=== PATIENT | female | born 2000 | race Hispanic/Latino ===

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

== ENCOUNTER 2020-10-15 11:34 | Emergency (ER) | payer SELFPAY ==
[2020-10-15] MEDS ORDERED: FAMOTIDINE 20 MG TAB ONE (13:30)
[2020-10-15] MEDS ORDERED: dexAMETHasone 10 MG/ML VIAL ONE (13:30)
[2020-10-15] MEDS ORDERED: DIPHENHYDRAMINE 25 MG TAB/CAP ONE (13:30)
--- NOTE | 2020-10-15 13:53 | EDPHYS ---
Physician Documentation [facility] Name: Shakira Ybarra Age: 20 yrs Sex: Female : 2000 Arrival Date: 10/15/2020 Time: 11:35 Bed DIS5 Private MD: ED Physician Jaxon Lagos HPI: 10/15 12:45 This 20 yrs old Female presents to ER via Ambulatory with complaints of Lips pm1 Swelling. 12:45 The patient's rash thought to be caused by food. The rash is located on the lower lip. pm1 The rash can be described as left sided swelling. Onset: The symptoms/episode began/occurred yesterday. Associated signs and symptoms: Pertinent positives: sore throat, Pertinent negatives: burning sensation, difficulty breathing, fever. Severity of symptoms: in the emergency department the symptoms are worse. Treatment given at home: none. The patient has not experienced similar symptoms in the past. The patient has not recently seen a physician. 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 - Social history:: Smoking status: Patient denies any tobacco usage or history of. ROS: 12:45 Constitutional: Negative for fever, chills, and weight loss, Eyes: Negative for injury, pm1 pain, redness, and discharge. 12:45 Neck: Negative for injury, pain, and swelling, Cardiovascular: Negative for chest pain, palpitations, and edema, Respiratory: Negative for shortness of breath, cough, wheezing, and pleuritic chest pain, Abdomen/GI: Negative for abdominal pain, nausea, vomiting, diarrhea, and constipation, Back: Negative for injury and pain, MS/Extremity: Negative for injury and deformity, Skin: Negative for injury, rash, and discoloration, Neuro: Negative for headache, weakness, numbness, tingling, and seizure. 12:45 ENT: Positive for sore throat, lower lip swelling, Negative for drainage from ear(s), ear pain. Exam: 12:45 Constitutional: This is a well developed, well nourished patient who is awake, alert, pm1 and in no acute distress. Head/Face: Normocephalic, atraumatic. Eyes: Pupils equal round and reactive to light, extra-ocular motions intact. Lids and lashes normal. Conjunctiva and sclera are non-icteric and not injected. Cornea within normal limits. Periorbital areas with no swelling, redness, or edema. 12:45 Neck: Trachea midline, no thyromegaly or masses palpated, and no cervical lymphadenopathy. Supple, full range of motion without nuchal rigidity, or vertebral point tenderness. No Meningismus. 12:45 Back: No spinal tenderness. No costovertebral tenderness. Full range of motion. Skin: Warm, dry with normal turgor. Normal color with no rashes, no lesions, and no evidence of cellulitis. MS/ Extremity: Pulses equal, no cyanosis. Neurovascular intact. Full, normal range of motion. 12:45 ENT: Mouth: Lips: mild left sided swelling, Oral mucosa: normal, pink and intact, moist, Tongue: is normal, drooling, is not appreciated, Posterior pharynx: no acute changes, Voice: no acute changes. 12:45 Cardiovascular: Rate: normal, Rhythm: regular, Pulses: no pulse deficits are appreciated. 12:45 Respiratory: Exam negative for acute changes, respiratory distress, shortness of breath, Breath sounds: are clear throughout. 12:45 Abdomen/GI: Inspection: abdomen appears normal, Palpation: abdomen is soft and non-tender, in all quadrants. 12:45 Neuro: Exam negative for acute changes, Orientation: is normal, Mentation: is normal, Motor: moves all fours, Sensation: is normal, no obvious gross deficits. Vital Signs: 12:13 BP 122 / 80; Pulse 90; Resp 16 S; Temp 97.3(TE); Pulse Ox 98% on R/A; Weight 77.11 kg jd3 (R); Height 5 ft. 5 in. (165.10 cm) (R); Pain 5/10; 13:40 BP 110 / 76; Pulse 86; Resp 16; Pulse Ox 100% on R/A; ca1 12:13 Body Mass Index 28.29 (77.11 kg, 165.10 cm) jd3 MDM: 12:44 Patient medically screened. pm1 13:51 Data reviewed: vital signs. Data interpreted: Pulse oximetry: on room air is 100 %. pm1 Interpretation: normal. Counseling: I had a detailed discussion with the patient and/or guardian regarding: the historical points, exam findings, and any diagnostic results supporting the discharge/admit diagnosis, the need for outpatient follow up, an allergy/educational specialist, a family practitioner, to return to the emergency department if symptoms worsen or persist or if there are any questions or concerns that arise at home. Administered Medications: 13:13 Drug: Pepcid (famotidine) 20 mg Route: PO; ca1 13:40 Follow up: Response: No adverse reaction; Marked relief of symptoms ca1 13:14 Drug: Benadryl (diphenhydrAMINE) 25 mg Route: PO; ca1 13:40 Follow up: Response: No adverse reaction; Marked relief of symptoms ca1 13:16 Drug: Decadron (dexamethasone) 10 mg Route: IM; Site: left gluteus; ca1 13:41 Follow up: Response: No adverse reaction; Marked relief of symptoms ca1 Disposition: 15:59 Co-signature as Attending Physician, Jaxon Lagos MD. rn Disposition: 10/15/20 13:52 Discharged to Home. Impression: Abrasion of lip and oral cavity, Allergy to seafood. - Condition is Stable. - Discharge Instructions: Food Allergy, Seafood Allergy. - Prescriptions for Benadryl 25 mg Oral Capsule - take 1 capsule by ORAL route every 6 hours As needed; 30 tablet. Pepcid 20 mg Oral Tablet - take 1 tablet by ORAL route every 12 hours for 10 days; 20 tablet. Prednisone 20 mg Oral Tablet - take 3 tablet by ORAL route once daily for 5 days; 15 tablet. Augmentin 875- 125 mg Oral Tablet - take 1 tablet by ORAL route every 12 hours for 10 days; 20 tablet. - Medication Reconciliation Form, Thank You Letter, Antibiotic Education, Prescription Opioid Use, Work release form form. - Follow up: Emergency Department; When: As needed; Reason: Worsening of condition. Follow up: Private Physician; When: 2 - 3 days; Reason: Recheck today's complaints, Continuance of care, Re-evaluation by your physician. - Problem is new. - Symptoms have improved. Signatures: Jaxon Lagos MD MD rn Marinas, Patrick, NP [employer] pm1 Joshua Hines RN RN jd3 Lauren Tucker RN RN ca1 Corrections: (The following items were deleted from the chart) 14:05 13:52 10/15/2020 13:52 Discharged to Home. Impression: Abrasion of lip and oral cavity; ca1 Allergy to seafood. Condition is Stable. Forms are Work release form, Medication Reconciliation Form, Thank You Letter, Antibiotic Education, Prescription Opioid Use. Follow up: Emergency Department; When: As needed; Reason: Worsening of condition. Follow up: Private Physician; When: 2 - 3 days; Reason: Recheck today's complaints, Continuance of care, Re-evaluation by your physician. Problem is new. Symptoms have improved. pm1
--- NOTE | 2020-10-15 13:53 | ER ---
Nurse's Notes [facility] Name: Shakira Ybarra Age: 20 yrs Sex: Female : 2000 Arrival Date: 10/15/2020 Time: 11:35 Bed DIS5 Private MD: Diagnosis: Abrasion of lip and oral cavity;Allergy to seafood Presentation: 10/15 12:11 Chief complaint: Patient states: "i have a swollen lip that started yesterday. I jd3 thought it was because of my braces with a cut, but it got a lot worse this morning.". Coronavirus screen: At this time, the client does not indicate any symptoms associated with coronavirus-19. Ebola Screen: Patient negative for fever greater than or equal to 101.5 degrees Fahrenheit, and additional compatible Ebola Virus Disease symptoms. Initial Sepsis Screen: Does the patient meet any 2 criteria? No. Patient's initial sepsis screen is negative. Does the patient have a suspected source of infection? No. Patient's initial sepsis screen is negative. Risk Assessment: Do you want to hurt yourself or someone else? Patient reports no desire to harm self or others. Onset of symptoms was October 14, 2020. 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 - Social history:: Smoking status: Patient denies any tobacco usage or history of. Screenin:45 Abuse screen: Denies threats or abuse. Denies injuries from another. Nutritional ca1 screening: No deficits noted. Tuberculosis screening: No symptoms or risk factors identified. Fall Risk None identified. Assessment: 12:45 General: Appears in no apparent distress. comfortable, Behavior is calm, cooperative, ca1 appropriate for age. Pain: Complains of pain in lower lip. Neuro: Level of Consciousness is awake, alert, obeys commands, Oriented to person, place, time, situation. EENT: Oral mucosa is moist. has white patch/ lesion noted on inner L lower lip. Reports started as a cut 3 days UNDER BASTER. Pt wears braces. Derm: Skin is intact, is healthy with good turgor, Skin is pink, warm \\T\\ dry. Musculoskeletal: Circulation, motion, and sensation intact. Capillary refill < 3 seconds. 13:40 Reassessment: Patient appears in no apparent distress at this time. Patient is alert, ca1 oriented x 3, equal unlabored respirations, skin warm/dry/pink. Vital Signs: 12:13 BP 122 / 80; Pulse 90; Resp 16 S; Temp 97.3(TE); Pulse Ox 98% on R/A; Weight 77.11 kg jd3 (R); Height 5 ft. 5 in. (165.10 cm) (R); Pain 5/10; 13:40 BP 110 / 76; Pulse 86; Resp 16; Pulse Ox 100% on R/A; ca1 12:13 Body Mass Index 28.29 (77.11 kg, 165.10 cm) jd3 ED Course: 11:35 Patient arrived in ED. am2 12:12 Triage completed. jd3 12:14 Arm band placed on. jd3 12:37 Piter Draper NP is PHCP. pm1 12:37 Jaxon Lagos MD is Attending Physician. pm1 12:44 Lauren Tucker, NICHOLE is Primary Nurse. ca1 12:45 Patient has correct armband on for positive identification. Bed in low position. Call ca1 light in reach. 12:47 No provider procedures requiring assistance completed. Patient did not have IV access ca1 during this emergency room visit. Administered Medications: 13:13 Drug: Pepcid (famotidine) 20 mg Route: PO; ca1 13:40 Follow up: Response: No adverse reaction; Marked relief of symptoms ca1 13:14 Drug: Benadryl (diphenhydrAMINE) 25 mg Route: PO; ca1 13:40 Follow up: Response: No adverse reaction; Marked relief of symptoms ca1 13:16 Drug: Decadron (dexamethasone) 10 mg Route: IM; Site: left gluteus; ca1 13:41 Follow up: Response: No adverse reaction; Marked relief of symptoms ca1 Outcome: 13:52 Discharge ordered by . pm1 14:05 Discharged to home ambulatory, with friend. ca1 14:05 Condition: stable 14:05 Discharge instructions given to patient, Instructed on discharge instructions, follow up and referral plans. no drinking with medication, no driving heavy equipment, medication usage, Demonstrated understanding of instructions, follow-up care, medications, Prescriptions given X 4. 14:05 Patient left the ED. ca1 Signatures: Piter Draper NP [employer] SEWER pm1 Justa Lira am2 Joshua Hines RN RN jd3 Lauren Tucker RN RN ca1
[2020-10-15 14:13] VITALS: O2SAT 100
[2020-10-15 14:19] VITALS: TEMP 97.7
[2020-10-15 14:21] VITALS: BP 121/79
== END 2020-10-15 14:05 | disposition home or self-care (01) ==
LOC: ER 11:34
DX: S00.511A Abrasion of lip, initial encounter (principal); S00.512A Abrasion of oral cavity, initial encounter; Z91.013 Allergy to seafood
CPT/HCPCS: 96372; 99283; J1100

== ENCOUNTER 2023-01-15 18:22 | Emergency (ER) | payer SELFPAY ==
[2023-01-15] MEDS ORDERED: ACETAMINOPHEN 500 MG TAB ONE (19:58)
[2023-01-15] MEDS ORDERED: ONDANSETRON 4 MG (ODT) TAB ONE (19:58)
--- NOTE | 2023-01-15 21:48 | ER ---
Nurse's Notes [facility] Name: Shakira Ybarra Age: 22 yrs Sex: Female : 2000 Arrival Date: 01/15/2023 Time: 18:22 Bed 12 Private MD: Diagnosis: Influenza due to unidentified influenza virus with other respiratory manifestations Presentation: 01/15 18:51 Chief complaint: Patient states: "Flu like symptoms: headaches, body aches, sore throat nj1 yesterday". Onset sometime this week. 18:51 Method Of Arrival: Ambulatory [facility] 18:51 Coronavirus screen: Vaccine status: Patient reports being unvaccinated. Ebola Screen: wa1 Patient denies travel to an Ebola-affected area in the 21 days before illness onset. Initial Sepsis Screen: Does the patient meet any 2 criteria? HR > 90 bpm. No. Patient's initial sepsis screen is negative. Does the patient have a suspected source of infection? No. Patient's initial sepsis screen is negative. Risk Assessment: Do you want to hurt yourself or someone else? Patient reports no desire to harm self or others. Onset of symptoms was January 2023. 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 [facility] Historical: - Allergies: 19:18 No Known Allergies; nj1 - PMHx: 19:18 None; nj1 - Immunization history:: Client reports having NOT received the Covid vaccine. - Social history:: Smoking status: Patient denies any tobacco usage or history of. Screenin:00 [facility] ED Fall Risk Assessment (Adult) Score/Fall Risk Level 0 - 2 = Low Risk nj1 Oriented to surroundings, Maintained a safe environment, Hourly rounding (assess needs \\T\\ fall precautionary measures) done. Abuse screen: Denies threats or abuse. Denies injuries from another. Nutritional screening: No deficits noted. Tuberculosis screening: No symptoms or risk factors identified. Assessment: 19:00 Reassessment:. General: Appears in no apparent distress. comfortable, Behavior is calm, nj1 cooperative, appropriate for age. Pain: Complains of pain in Generalized, sore throat Pain currently is 8 out of 10 on a pain scale. Neuro: Level of Consciousness is awake, alert, obeys commands, Oriented to person, place, time, situation. 19:00 Cardiovascular: Patient's skin is warm and dry. Respiratory: Airway is patent nj1 Respiratory effort is even, unlabored. 20:00 Reassessment: Patient appears in no apparent distress at this time. Patient and/or nj1 family updated on plan of care and expected duration. Pain level reassessed. Patient is alert, oriented x 3, equal unlabored respirations, skin warm/dry/pink. 20:55 Reassessment: Patient appears in no apparent distress at this time. Patient and/or nj1 family updated on plan of care and expected duration. Pain level reassessed. Patient is alert, oriented x 3, equal unlabored respirations, skin warm/dry/pink. Given a gatorade for ordered PO challenge. 22:00 Reassessment: Patient appears in no apparent distress at this time. Patient states kl feeling better. Patient states symptoms have improved. Vital Signs: 18:51 BP 124 / 83; Pulse 100; Resp 18; Temp 99.1(O); Pulse Ox 99% on R/A; Weight 83.91 kg; nj1 Height 5 ft. 5 in. ; 20:55 BP 110 / 81; Pulse 105; Resp 17; Temp 98.5(O); Pulse Ox 98% ; Pain 3/10; nj1 22:01 BP 102 / 64; Pulse 92; Resp 16; Temp 97(TE); Pulse Ox 98% on R/A; kl 18:51 Body Mass Index 30.79 (83.91 kg, 165.1 cm) nj1 20:55 Pain Scale: Adult [facility] ED Course: 18:27 Patient arrived in ED. im 18:29 Silvano Fish PA is PHCP. cp 18:29 Jaxon Lagos MD is Attending Physician. cp 19:00 Patient has correct armband on for positive identification. Bed in low position. Call [facility] light in reach. Adult w/ patient. 19:00 Provided Education on: fall precautions, call light. [facility] 19:08 Khadra Coker, NICHOLE is Primary Nurse. [facility] 19:18 Triage completed. nj1 19:19 Arm band placed on right wrist. nj1 21:37 No provider procedures requiring assistance completed. Patient did not have IV access mb9 during this emergency room visit. Administered Medications: 19:50 Drug: Acetaminophen PO 1000 mg Route: PO; nj1 20:41 Follow up: Response: No adverse reaction nj1 19:50 Drug: Ondansetron PO 4 mg Route: PO; nj1 20:41 Follow up: Response: No adverse reaction nj1 Medication: 19:21 VIS not applicable for this client. nj1 Outcome: 21:48 Discharge ordered by . cp 22:01 Discharged to home ambulatory. kl 22:01 Condition: stable 22:01 Discharge instructions given to patient, Instructed on discharge instructions, follow up and referral plans. Demonstrated understanding of instructions, follow-up care, medications, Prescriptions given X 2. 22:02 Patient left the ED. Signatures: Analilia Baldwin RN RN Silvano Baker PA PA cp Breneman, Mary Beth RN RN mb9 Khadra Coker RN RN nj1 Sakshi Batres Corrections: (The following items were deleted from the chart) 20:57 20:55 Reassessment: Patient appears in no apparent distress at this time. Patient nj1 and/or family updated on plan of care and expected duration. Pain level reassessed. Patient is alert, oriented x 3, equal unlabored respirations, skin warm/dry/pink. nj1
--- NOTE | 2023-01-15 21:48 | EDPHYS ---
Physician Documentation [facility] Name: Shakira Ybarra Age: 22 yrs Sex: Female : 2000 Arrival Date: 01/15/2023 Time: 18:22 Bed 12 Private MD: ED Physician Jaxon Lagos HPI: 01/15 19:15 This 22 yrs old Female presents to ER via Ambulatory with complaints of Flu cp Symptoms. 19:15 Patient is a 22-year-old female with no significant past medical history who presents cp to the emergency department with complaints of headache, sore throat, body aches and subjective fever that started earlier this week. Patient complains of some chest pressure but denies cough and denies abdominal pain. 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 nj1 Historical: - Allergies: 19:18 No Known Allergies; nj1 - PMHx: 19:18 None; nj1 - Immunization history:: Client reports having NOT received the Covid vaccine. - Social history:: Smoking status: Patient denies any tobacco usage or history of. ROS: 19:20 Constitutional: Positive for body aches, chills, Negative for fever, poor PO intake. cp 19:20 Eyes: Negative for injury, pain, redness, and discharge. cp 19:20 ENT: Positive for sore throat, Negative for drainage from ear(s), ear pain, rhinorrhea, difficulty swallowing, difficulty handling secretions. 19:20 Cardiovascular: Negative for palpitations. 19:20 Respiratory: Negative for cough, shortness of breath, wheezing. 19:20 Abdomen/GI: Negative for abdominal pain, vomiting, diarrhea, constipation. 19:20 Back: Negative for injury or acute deformity, decreased range of motion. 19:20 Neuro: Positive for headache, Negative for altered mental status, syncope, weakness. 19:20 All other systems are negative. Exam: 19:25 Constitutional: The patient appears in no acute distress, alert, awake, non-toxic, well cp developed, well nourished. 19:25 Head/Face: Normocephalic, atraumatic. cp 19:25 Eyes: Periorbital structures: appear normal, Conjunctiva: normal, no exudate, no injection, Sclera: no appreciated abnormality, Lids and lashes: appear normal, bilaterally. 19:25 ENT: External ear(s): are unremarkable, Ear canal(s): are normal, clear, TM's: dullness, bilaterally, Nose: is normal, Mouth: Lips: moist, Oral mucosa: pink and intact, moist, Posterior pharynx: is normal, airway is patent, no erythema, no exudate. 19:25 Neck: ROM/movement: is normal, is supple, without pain, no range of motions limitations, no meningismus. 19:25 Chest/axilla: Inspection: normal. 19:25 Cardiovascular: Rate: normal, Rhythm: regular. 19:25 Respiratory: the patient does not display signs of respiratory distress, Respirations: normal, no use of accessory muscles, no retractions, labored breathing, is not present, Breath sounds: are clear throughout, no decreased breath sounds, no stridor, no wheezing. 19:25 Abdomen/GI: Inspection: abdomen appears normal, Palpation: abdomen is soft and non-tender, in all quadrants. 19:25 Back: CVA tenderness, is absent. 19:25 Skin: cellulitis, is not appreciated, no rash present. 19:25 Neuro: Orientation: to person, place \T\ time. Mentation: is normal, Motor: moves all fours, strength is normal, Sensation: is normal. Vital Signs: 18:51 BP 124 / 83; Pulse 100; Resp 18; Temp 99.1(O); Pulse Ox 99% on R/A; Weight 83.91 kg; nj1 Height 5 ft. 5 in. ; 20:55 BP 110 / 81; Pulse 105; Resp 17; Temp 98.5(O); Pulse Ox 98% ; Pain 3/10; nj1 22:01 BP 102 / 64; Pulse 92; Resp 16; Temp 97(TE); Pulse Ox 98% on R/A; kl 18:51 Body Mass Index 30.79 (83.91 kg, 165.1 cm) nj1 20:55 Pain Scale: Adult nj1 MDM: 18:50 Patient medically screened. 20:45 Differential diagnosis: viral Infection, bacterial infection, bronchitis, pneumonia UTI. 21:47 Data reviewed: vital signs, nurses notes, lab test result(s). cp 21:47 I considered the following discharge prescriptions or medication management in the emergency department Medications were administered in the Emergency Department. See MAR. Counseling: I had a detailed discussion with the patient and/or guardian regarding: the historical points, exam findings, and any diagnostic results supporting the discharge/admit diagnosis, lab results, to return to the emergency department if symptoms worsen or persist or if there are any questions or concerns that arise at home. Response to treatment: the patient's symptoms have markedly improved after treatment, and as a result, I will discharge patient. 01/15 19:07 Order name: COVID-19 SARS RT PCR 01/15 20:06 Order name: SARS-COV-2 RT PCR; Complete Time: 21:05 EDIA 01/15 21:05 Interpretation: Results reviewed. 01/15 20:42 Order name: Influenza Screen (A EDIA 01/15 20:42 Order name: Group A Streptococcus Rapid Sc EDIA 01/15 21:05 Interpretation: Reviewed. 01/15 21:18 Order name: Throat Culture [facility] 01/15 20:43 Order name: PO challenge; Complete Time: 21:16 cp Administered Medications: 19:50 Drug: Acetaminophen PO 1000 mg Route: PO; nj1 20:41 Follow up: Response: No adverse reaction nj1 19:50 Drug: Ondansetron PO 4 mg Route: PO; nj1 20:41 Follow up: Response: No adverse reaction nj1 Disposition Summary: 01/15/23 21:48 Discharge Ordered Location: Home cp Problem: new cp Symptoms: have improved cp Condition: Stable cp Diagnosis - Influenza due to unidentified influenza virus with other respiratory manifestations cp Followup: cp - With: Private Physician - When: 2 - 3 days - Reason: Worsening of condition Discharge Instructions: - Discharge Summary Sheet cp - Influenza, Adult cp - Form - Excuse from Work, School, or Physical Activity cp Forms: - Work release form kl - Medication Reconciliation Form cp - Thank You Letter cp - Antibiotic Education cp - Prescription Opioid Use cp - Patient Portal Instructions cp Prescriptions: - Ibuprofen 800 mg Oral Tablet - take 1 tablet by ORAL route every 8 hours As needed take with food; 30 tablet; cp Refills: 0, Product Selection Permitted - Zofran 4 mg Oral Tablet - take 1 tablet by ORAL route every 12 hours As needed; 10 tablet; Refills: 0, cp Product Selection Permitted Signatures: Dispatcher [facility] Silvano Fish PA PA cp John Paul, Khadra, RN RN nj1
[2023-01-15 22:16] VITALS: O2SAT 98
[2023-01-15 22:20] VITALS: BP 102/64; TEMP 97
== END 2023-01-15 22:02 | disposition home or self-care (01) ==
LOC: ER 18:22
DX: J11.1 Influenza due to unidentified influenza virus with other respiratory manifestations (principal); Z20.822 Contact with and (suspected) exposure to COVID-19
CPT/HCPCS: 87070; 87081; 87635; 87804; 99283; Q0162

== ENCOUNTER 2023-01-20 22:55 | Emergency (ER) | payer SELFPAY ==
[2023-01-20] MEDS ORDERED: CEFTRIAXONE 1000 MG/VIAL ONE (23:21)
[2023-01-20] MEDS ORDERED: IBUPROFEN 400 MG TAB ONE (23:22)
[2023-01-20] MEDS ORDERED: LIDOCAINE 1% MPF 2 ML AMPULE ONE (23:22)
--- NOTE | 2023-01-20 23:27 | EDPHYS ---
Physician Documentation [facility] Name: Shakira Ybarra Age: 22 yrs Sex: Female : 2000 Arrival Date: 01/20/2023 Time: 22:55 Bed 12 Private MD: ED Physician Frederic Bishop HPI: 01/20 23:02 This 22 yrs old Female presents to ER via Unassigned with complaints of Sore sp4 Throat. 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 - Social history:: Smoking status: Patient denies any tobacco usage or history of. Vital Signs: 23:01 BP 134 / 96; Pulse 84; Resp 18; Temp 98.6(O); Pulse Ox 100% on R/A; Weight 83.91 kg; mb9 Height 5 ft. 5 in. ; 23:01 Body Mass Index 30.79 (83.91 kg, 165.1 cm) mb9 MDM: 23:14 Patient medically screened. sp4 Administered Medications: 23:15 Drug: Rocephin (cefTRIAXone) IM 1 grams Route: IM; Site: right gluteus; mb9 23:19 Follow up: Response: No adverse reaction mb9 23:15 Drug: Ibuprofen PO 800 mg Route: PO; mb9 23:19 Follow up: Response: No adverse reaction mb9 Disposition Summary: 01/20/23 23:27 Discharge Ordered Location: Home sp4 Problem: new sp4 Symptoms: have improved sp4 Condition: Stable sp4 Diagnosis - Streptococcal tonsillitis sp4 Followup: sp4 - With: Private Physician - When: 7 - 10 days - Reason: Recheck today's complaints Discharge Instructions: - Discharge Summary Sheet mb9 - Tonsillitis, [id number] sp4 Forms: - Work release form mb9 - Patient Portal Instructions sp4 Prescriptions: - Zithromax Z-Marc 250 mg Oral Tablet - take 1 tablet by ORAL route as directed for 5 days Day 1 - take two (2) tablets sp4 one time. Day 2, 3, 4 , 5 take one (1) tablet once daily.; 6 tablet; Refills: 0, Product Selection Permitted Signatures: Meenakshi Perera RN RN mb9 Frederic Bishop MD MD sp4
--- NOTE | 2023-01-20 23:27 | ER ---
Nurse's Notes [facility] Name: Shakira Ybarra Age: 22 yrs Sex: Female : 2000 Arrival Date: 01/20/2023 Time: 22:55 Bed 12 Private MD: Diagnosis: Streptococcal tonsillitis Presentation: 01/20 23:01 Chief complaint: Patient states: I was seen last for fever, body aches, and mb9 chills. They swabbed me for Strep, COVID, and Flu, and it was all negative .Today my throat hurts when swallowing and hurts all the time and now there are white spots on my throat". Coronavirus screen: Vaccine status: Patient reports being unvaccinated. Ebola Screen: No symptoms or risks identified at this time. Initial Sepsis Screen: Does the patient meet any 2 criteria? No. Patient's initial sepsis screen is negative. Does the patient have a suspected source of infection? No. Patient's initial sepsis screen is negative. Risk Assessment: Do you want to hurt yourself or someone else? Patient reports no desire to harm self or others. Onset of symptoms was January 20, 2023. 23:01 Method Of Arrival: Ambulatory mb9 23:01 Acuity: VACNE 4 mb9 Triage Assessment: 23:03 General: Appears in no apparent distress. Behavior is calm, cooperative. Pain: mb9 Complains of pain in throat Pain does not radiate. Pain currently is 10 out of 10 on a pain scale. Quality of pain is described as throbbing, Pain began suddenly. EENT: Throat is reddened. Neuro: Gao Agitation-Sedation Scale (RASS): 0 - Alert and Calm Level of Consciousness is awake, alert, obeys commands, Oriented to person, place, time, situation, Appropriate for age. Cardiovascular: Patient's skin is warm and dry. Respiratory: Airway is patent Respiratory effort is even, unlabored, Respiratory pattern is regular, symmetrical. GI: No signs and/or symptoms were reported involving the gastrointestinal system. : No signs and/or symptoms were reported regarding the genitourinary system. Derm: Skin is pink, warm \\T\\ dry. Musculoskeletal: Range of motion: intact in all extremities. 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 - Social history:: Smoking status: Patient denies any tobacco usage or history of. Screenin:04 [facility] ED Fall Risk Assessment (Adult) History of falling in the last 3 months, mb9 including since admission No falls in past 3 months (0 pts) Confusion or Disorientation No (0 pts) Intoxicated or Sedated No (0 pts) Impaired Gait No (0 pts) Mobility Assist Device Used No (0 pt) Altered Elimination No (0 pt) Score/Fall Risk Level 0 - 2 = Low Risk Oriented to surroundings, Maintained a safe environment, Educated pt \\T\\ family on fall prevention, incl call for assistance when getting out of bed. Abuse screen: Denies threats or abuse. Nutritional screening: No deficits noted. Tuberculosis screening: No symptoms or risk factors identified. Assessment: 23:05 Reassessment: see triage assessment. mb9 Vital Signs: 23:01 BP 134 / 96; Pulse 84; Resp 18; Temp 98.6(O); Pulse Ox 100% on R/A; Weight 83.91 kg; mb9 Height 5 ft. 5 in. ; 23:01 Body Mass Index 30.79 (83.91 kg, 165.1 cm) mb9 ED Course: 22:59 Patient arrived in ED. kj1 23:02 Frederic Bishop MD is Attending Physician. sp4 23:03 Triage completed. mb9 23:03 Arm band placed on. mb9 23:04 Bed in low position. Call light in reach. Side rails up X 1. Client placed on mb9 continuous cardiac and pulse oximetry monitoring. NIBP monitoring applied. 23:04 No provider procedures requiring assistance completed. Patient did not have IV access mb9 during this emergency room visit. 23:05 Meenakshi Perera RN is Primary Nurse. mb9 Administered Medications: 23:15 Drug: Rocephin (cefTRIAXone) IM 1 grams Route: IM; Site: right gluteus; mb9 23:19 Follow up: Response: No adverse reaction mb9 23:15 Drug: Ibuprofen PO 800 mg Route: PO; mb9 23:19 Follow up: Response: No adverse reaction mb9 Medication: 23:04 VIS not applicable for this client. mb9 Outcome: 23:27 Discharge ordered by . sp4 23:28 Discharged to home ambulatory. mb9 23:28 Condition: stable 23:28 Discharge instructions given to patient, Instructed on discharge instructions, follow up and referral plans. Demonstrated understanding of instructions, follow-up care, medications, Prescriptions given X 1. 23:32 Patient left the ED. mb9 Signatures: Latoya Jaramillo kj1 Meenakshi Perera RN RN mb9 Frederic Bishop MD MD sp4
[2023-01-20 23:56] VITALS: BP 134/96; TEMP 98.6; O2SAT 100
== END 2023-01-20 23:32 | disposition home or self-care (01) ==
LOC: ER 22:55
DX: J03.00 Acute streptococcal tonsillitis, unspecified (principal)
CPT/HCPCS: J0696

== ENCOUNTER 2024-05-22 12:45 | Emergency (ER) | payer SELFPAY ==
[2024-05-22] MEDS ORDERED: IBUPROFEN 200 MG TAB PO ONE (13:27)
[2024-05-22] MEDS ORDERED: IBUPROFEN 400 MG TAB ONE (13:27)
[2024-05-22 14:05] LABS: SARS-CoV-2 Antigen CONTROL BLUE LINE VIS/BG OK; SARS-CoV-2 Antigen Rapid Res Negative (Negative)
--- NOTE | 2024-05-22 14:13 | EDPHYS ---
Physician Documentation [facility] Name: Shakira Ybarra Age: 23 yrs Sex: Female : 2000 Arrival Date: 05/22/2024 Time: 12:45 Bed 9 Private MD: ED Physician Stalin Kaufman HPI: 05/22 14:26 This 23 yrs old Female presents to ER via Wheelchair with complaints of Flu dr5 Symptoms. 14:26 Onset: The symptoms/episode began/occurred 2 day(s) ago. Patient is a 23-year-old dr5 female with no past medical history coming in with cough, fever, fatigue, congestion that started on Thursday. Patient denies any medical history. Patient denies any daily medications.. 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 - Infectious Disease History:: Denies. - Social history:: Smoking status: Patient denies any tobacco usage or history of. ROS: 14:26 Constitutional: as per hpi dr5 Exam: 14:26 Constitutional: This is a well developed, well nourished patient who is awake, alert, dr5 and in no acute distress. Head/Face: Normocephalic, atraumatic. Eyes: Pupils equal round and reactive to light, extra-ocular motions intact. Lids and lashes normal. Conjunctiva and sclera are non-icteric and not injected. Cornea within normal limits. Periorbital areas with no swelling, redness, or edema. Chest/axilla: Normal chest wall appearance and motion. Nontender with no deformity. No lesions are appreciated. Cardiovascular: Regular rate and rhythm with a normal S1 and S2. Normal PMI, no JVD. No pulse deficits. Respiratory: Lungs have equal breath sounds bilaterally, clear to auscultation. No rales, rhonchi or wheezes noted. No increased work of breathing, no retractions or nasal flaring. Back: No spinal tenderness. No costovertebral tenderness. Full range of motion. Skin: Warm, dry with normal turgor. Normal color with no rashes, no lesions, and no evidence of cellulitis. 14:26 ENT: External ear(s): are unremarkable, Ear canal(s): are normal, TM's: are normal, Nose: is normal, Mouth: is normal, Posterior pharynx: is normal, Vital Signs: 13:28 BP 115 / 69; Pulse 135; Resp 19; Temp 102.8(O); Pulse Ox 96% on R/A; Weight 88.45 kg; cm10 Height 5 ft. 6 in. ; Pain 8/10; 13:28 Body Mass Index 31.47 (88.45 kg, 167.64 cm) cm10 13:28 Pain Scale: Adult cm10 MDM: 14:02 Medical Screening Exam initiated dr5 14:26 Differential diagnosis: viral Infection, bacterial infection, URI, Influenza. Data dr5 reviewed: vital signs, nurses notes, lab test result(s), Flu: positive. Care significantly affected by the following Social Determinants of Health: Poor access to healthcare and/or lack of insurance, Poor access to transportation, Problems related to employment. Counseling: I had a detailed discussion with the patient and/or guardian regarding the historical points, exam findings, and any diagnostic results supporting the discharge/admit diagnosis, lab results, the need for outpatient follow up, for definitive care, a family practitioner, to return to the emergency department if symptoms worsen or persist or if there are any questions or concerns that arise at home. Medication response: ibuprofen administration has improved the patient's temperature, ibuprofen administration has improved the patient's pain. ED course: Lab reports shows flu a positive. Recommended patient alternate Tylenol Motrin every 3 hours as needed for fever and pain. Increase hydration. Follow-up primary care doctor as needed. Will keep patient out of work until fever has resolved for 24 hours without medications.. 05/22 13:25 Order name: Flu; Complete Time: 14:05 cm10 05/22 13:25 Order name: Strep cm10 05/22 13:25 Order name: SARS RAPID; Complete Time: 14:05 cm10 05/22 14:04 Order name: Throat Culture EDMS Administered Medications: 13:36 Drug: Ibuprofen PO 600 mg PO once Route: PO; cm10 Disposition Summary: 05/22/24 14:12 Discharge Ordered Notes: Location: Home dr5 Condition: Stable dr5 Diagnosis - Influenza due to identified novel influenza A virus dr5 Followup: dr5 - With: Emergency Department - When: As needed - Reason: Worsening of condition Followup: dr5 - With: Private Physician - When: 1 - 2 days - Reason: Recheck today's complaints, Continuance of care, Re-evaluation by your physician Discharge Instructions: - Discharge Summary Sheet dr5 - Influenza, Adult dr5 Forms: - Work release form dr5 - Medication Reconciliation Form dr5 - Patient Portal Instructions dr5 - Leadership Thank You Letter dr5 Prescriptions: - Bromfed DM 2-30-10 mg/5 mL Oral syrup - administer 10 milliliter ORAL route every 6 hours As needed as needed for dr5 allergy symptoms; 240 milliliter; Refills: 0, Product Selection Permitted - benzonatate 100 mg Oral capsule - take 1 capsule ORAL route 3 times per day As needed; 30 capsule; Refills: 0, dr5 Product Selection Permitted - Tamiflu 75 mg Oral capsule - take 1 tablet ORAL route every 12 hours for 5 days; 10 tablet; Refills: 0, dr5 Product Selection Permitted Signatures: Dispatcher [employer] Maude Allen RN RN cm10 Rigoberto Quinonez, SCIENCE MANAGER-C SCIENCE MANAGER-Cdr5
--- NOTE | 2024-05-22 14:13 | ER ---
Nurse's Notes [facility] Name: Shakira Ybarra Age: 23 yrs Sex: Female : 2000 Arrival Date: 05/22/2024 Time: 12:45 Bed 9 Private MD: Diagnosis: Influenza due to identified novel influenza A virus Presentation: 05/22 13:28 Chief complaint: Patient states: COUGH, SORE THROAT, FEVER ONSET THURSDAY. Coronavirus cm10 screen: Client denies travel out of the [place] in the last 14 days. Ebola Screen: Patient denies travel to an Ebola-affected area in the 21 days before illness onset. No symptoms or risks identified at this time. Initial Sepsis Screen: Does the patient meet any 2 criteria? Temp <36.0*C (96.8*F)) or > 38.3*C (100.9*F). HR > 90 bpm. Does the patient have a suspected source of infection? No. Patient's initial sepsis screen is negative. Risk Assessment: Do you want to hurt yourself or someone else? Patient reports no desire to harm self or others. Onset of symptoms was May 22, 2024. 13:28 Method Of Arrival: Wheelchair cm10 13:28 Acuity: VANCE 3 cm10 Triage Assessment: 13:29 General: Appears in no apparent distress. uncomfortable, Behavior is calm, cooperative. cm10 EENT: Throat is reddened. Neuro: No deficits noted. Level of Consciousness is awake, alert, obeys commands, Oriented to person, place, time, situation, Appropriate for age. Respiratory: No deficits noted. Reports cough that is Airway is patent Respiratory effort is even, unlabored, Respiratory pattern is regular, symmetrical. 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 - Infectious Disease History:: Denies. - Social history:: Smoking status: Patient denies any tobacco usage or history of. Screenin:30 [facility] ED Fall Risk Assessment (Adult) History of falling in the last 3 months, jb4 including since admission No falls in past 3 months (0 pts) Confusion or Disorientation No (0 pts) Intoxicated or Sedated No (0 pts) Impaired Gait No (0 pts) Mobility Assist Device Used No (0 pt) Altered Elimination No (0 pt) Score/Fall Risk Level 0 - 2 = Low Risk Oriented to surroundings, Maintained a safe environment. Abuse screen: Denies threats or abuse. Nutritional screening: No deficits noted. Tuberculosis screening: No symptoms or risk factors identified. Assessment: 14:30 Reassessment: Patient appears in no apparent distress at this time. Patient and/or jb4 family updated on plan of care and expected duration. Pain level reassessed. Patient is alert, oriented x 3, equal unlabored respirations, skin warm/dry/pink. Vital Signs: 13:28 BP 115 / 69; Pulse 135; Resp 19; Temp 102.8(O); Pulse Ox 96% on R/A; Weight 88.45 kg; cm10 Height 5 ft. 6 in. ; Pain 8/10; 13:28 Body Mass Index 31.47 (88.45 kg, 167.64 cm) cm10 13:28 Pain Scale: Adult cm10 ED Course: 12:48 Patient arrived in ED. im 13:29 Triage completed. cm10 13:29 Arm band placed on right wrist. Patient placed in waiting room. Antipyretics given from cm10 triage as ordered by an ER provider. Labs ordered per protocol. Drawn by ED staff. 13:36 SARS RAPID Sent. cm10 13:36 Strep Sent. cm10 13:36 Flu Sent. cm10 13:36 COVID swab sent to lab. Flu and/or RSV swab sent to lab. Strep swab sent to lab. cm10 13:39 Patient placed in an exam room, on a stretcher. ll1 14:01 Rigober[facility]onez [facility]C [facility] dr5 14:02 Stalin Kaufman MD is Attending Physician. dr5 14:30 Allergy band placed. Bed in low position. Call light in reach. Side rails up X 1. jb4 Provided Education on: discharge instructions. 14:30 No provider procedures requiring assistance completed. Patient did not have IV access jb4 during this emergency room visit. Administered Medications: 13:36 Drug: Ibuprofen PO 600 mg PO once Route: PO; cm10 Medication: 14:30 VIS not applicable for this client. jb4 Outcome: 14:12 Discharge ordered by . dr5 14:30 Discharged to home ambulatory, jb4 14:30 Condition: stable 14:30 Discharge instructions given to patient, Instructed on discharge instructions, follow up and referral plans. medication usage, Demonstrated understanding of instructions, follow-up care, medications, Prescriptions given X 3, 14:31 Patient left the ED. jb4 Signatures: Cortez Tinajero RN RN jb4 Licha Baldwin RN RN ll1 Sakshi Batres Clarissa, RN RN cm10 Rigoberto Quinonez, MECHANIC WELDER-C MECHANIC WELDER-Cdr5
[2024-05-22 14:47] VITALS: BP 115/69; TEMP 102.8; O2SAT 96
== END 2024-05-22 14:31 | disposition home or self-care (01) ==
LOC: ER 12:45
DX: J10.1 Influenza due to other identified influenza virus with other respiratory manifestations (principal); Z11.52 Encounter for screening for COVID-19
CPT/HCPCS: 36415; 87070; 87081; 87804; 87811; 99283

== ENCOUNTER 2024-05-28 01:36 | Emergency (ER) | payer SELFPAY ==
[2024-05-28] MEDS ORDERED: PROMETHAZINE 25 MG TABLET ONE (02:51)
[2024-05-28] MEDS ORDERED: DIPHENHYDRAMINE 25 MG TAB/CAP ONE (02:52)
[2024-05-28] MEDS ORDERED: BENZONATATE 100 MG CAP PO ONE (02:52)
[2024-05-28] MEDS ORDERED: AZITHROMYCIN 250 MG TAB ONE (02:52)
[2024-05-28] MEDS ORDERED: IBUPROFEN 400 MG TAB ONE (02:52)
[2024-05-28] MEDS ORDERED: GUAIFENESIN/DM 5 ML UCUP ONE (03:12)
[2024-05-28 03:19] LABS: Specific Gravity 1.024 (1.005-1.030)
--- NOTE | 2024-05-28 03:30 | EDPHYS ---
Physician Documentation [facility] Name: Shakira Ybarra Age: 24 yrs Sex: Female : 2000 Arrival Date: 05/28/2024 Time: 01:36 Bed 18 Private MD: ED Physician Frederic Bishop HPI: 05/28 01:53 This 24 yrs old Female presents to ER via Unassigned with complaints of Cough. sp4 20:44 24-year-old female presents with complaint of persistent cough . . sp4 20:46 Was diagnosed with influenza A on 05/22/2024 and prescribed Tamiflu and Bromfed.. 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 - Infectious Disease History:: Denies. - Social history:: Smoking status: Patient denies any tobacco usage or history of. - Family history:: not pertinent. ROS: 20:46 Constitutional: Negative for fever, chills, and weight loss, positive for persistent sp4 cough 20:46 All other systems are negative, Exam: 20:46 Constitutional: This is a well developed, well nourished patient who is awake, alert, sp4 and in no acute distress. Head/Face: Normocephalic, atraumatic. Eyes: Pupils equal round and reactive to light, extra-ocular motions intact. Lids and lashes normal. Conjunctiva and sclera are not injected. Cornea within normal limits. Periorbital areas with no swelling, redness, or edema. ENT: Nares patent. No nasal discharge, no septal abnormalities noted. Tympanic membranes are normal and external auditory canals are clear. Oropharynx with no redness, swelling, or masses, exudates, or evidence of obstruction, uvula midline. Mucous membranes moist. Neck: Trachea midline, no thyromegaly or masses palpated, and no cervical lymphadenopathy. Supple, full range of motion without nuchal rigidity, or vertebral point tenderness. Chest/axilla: Normal chest wall appearance and motion. Nontender with no deformity. No lesions are appreciated. Cardiovascular: Regular rate and rhythm with a normal S1 and S2. No gallops, murmurs, or rubs. Normal PMI, no JVD. No pulse deficits. Respiratory: Lungs have equal breath sounds bilaterally, clear to auscultation and percussion. No rales, rhonchi or wheezes noted. No increased work of breathing, no retractions or nasal flaring. Abdomen/GI: Soft, with normal bowel sounds. No distension or tympany. No guarding or rebound. No evidence of tenderness throughout. Back: No spinal tenderness. No costovertebral tenderness. Skin: Warm, dry with normal turgor. Normal color with no rashes, no lesions, and no evidence of cellulitis. MS/ Extremity: Pulses equal, no cyanosis. Neurovascular intact. Full, normal range of motion. Neuro: Awake and alert, GCS 15, oriented to person, place, time, and situation. Cranial nerves II-XII grossly intact. Motor strength 5/5 in all extremities. Sensory grossly intact. Psych: Awake, alert, with orientation to person, place and time. Behavior, mood, and affect are within normal limits Vital Signs: 02:30 BP 129 / 81; Pulse 82; Resp 18; Temp 98.1; Pulse Ox 100% on R/A; kj2 02:39 Weight 88.9 kg; Height 5 ft. 6 in. ; kj2 03:22 BP 104 / 77; Pulse 78; Resp 18; Pulse Ox 99% on R/A; kj2 02:39 Body Mass Index 31.63 (88.90 kg, 167.64 cm) kj2 [place] Coma Score: 20:46 Eye Response: spontaneous(4). Motor Response: obeys commands(6). Verbal Response: sp4 oriented(5). Total: 15. MDM: 01:56 Medical Screening Exam initiated sp4 20:46 Differential Diagnosis: Obstructed Airway Bronchitis Influenza Upper Respiratory sp4 Infection Viral Syndrome. Data reviewed: vital signs, nurses notes. 20:47 Data reviewed: lab test result(s), UPT: negative. Consideration of sp4 Admission/Observation Escalation of care including admission/observation considered. ED course: Patient's cough has improved. Patient will be covered by Zithromax for the next 5 days. Otherwise will prescribe as needed cough suppressants.. 05/28 02:06 Order name: Test, Urine; Complete Time: 03:22 sp4 Administered Medications: 03:01 Drug: Tessalon Perle PO 200 mg PO once Route: PO; kj2 03:38 Follow up: Response: No adverse reaction kj2 03:01 Drug: diphenhydrAMINE PO 25 mg PO once Route: PO; kj2 03:38 Follow up: Response: No adverse reaction kj2 03:02 Drug: AZITHromycin PO 500 mg PO once Route: PO; kj2 03:39 Follow up: Response: Adverse reaction, Physician notified kj2 03:02 Drug: Promethazine PO 50 mg PO once Route: PO; kj2 03:39 Follow up: Response: No adverse reaction kj2 03:02 Drug: Ibuprofen PO 800 mg PO once Route: PO; kj2 03:38 Follow up: Response: No adverse reaction kj2 03:20 Not Given (Other Intervention Used): dextromethorphan-guaifenesinliquid 10 mg-100 mg/5 lg3 ml 20 ml PO once 03:22 Drug: Dextromethorphan-Guaifenesin PO Liquid 10 mg-100 mg/5 mL 10 ml PO once Route: PO; kj2 03:38 Follow up: Response: No adverse reaction kj2 Disposition Summary: 05/28/24 03:29 Discharge Ordered Notes: Location: Home sp4 Problem: new sp4 Symptoms: have improved sp4 Condition: Stable sp4 Diagnosis - Cough sp4 - Acute pharyngitis, unspecified sp4 Followup: sp4 - With: Private Physician - When: 7 - 10 days - Reason: Recheck today's complaints Discharge Instructions: - Discharge Summary Sheet sp4 - Cough, Adult, [id number] sp4 Forms: - Patient Portal Instructions sp4 Prescriptions: - dextromethorphan-guaifenesin 20-400 mg Oral tablet - take 1 tablet ORAL route every 6 hours PRN cough; 60 tablet; Refills: 0, sp4 Product Selection Permitted - Zithromax Z-Marc 250 mg Oral Tablet - take 1 tablet ORAL route as directed for 5 days Day 1 - take two (2) tablets sp4 one time. Day 2, 3, 4 , 5 take one (1) tablet once daily.; 6 tablet; Refills: 0, Product Selection Permitted - promethazine 25 mg Oral tablet - take 1 tablet ORAL route every 6 hours As needed PRN nausea; 30 tablet; sp4 Refills: 0, Product Selection Permitted Signatures: Dispatcher [employer] Teena Prajapati, RN RN lg3 Frederic Bishop MD MD sp4 Dianna Fihser, RN RN kj2
--- NOTE | 2024-05-28 03:30 | ER ---
Nurse's Notes [facility] Name: Shakira Ybarra Age: 24 yrs Sex: Female : 2000 Arrival Date: 05/28/2024 Time: 01:36 Bed 18 Private MD: Diagnosis: Cough;Acute pharyngitis, unspecified Presentation: 05/28 02:20 Chief complaint: Patient states: persistent cough, headache. Coronavirus screen: Client kj2 denies travel out of the [place] in the last 14 days. Ebola Screen: No symptoms or risks identified at this time. Initial Sepsis Screen: Does the patient meet any 2 criteria? No. Patient's initial sepsis screen is negative. Does the patient have a suspected source of infection? No. Patient's initial sepsis screen is negative. Risk Assessment: Do you want to hurt yourself or someone else? Patient reports no desire to harm self or others. Onset of symptoms was May 28, 2024. Onset of symptoms was April 08, 2024. 02:20 Method Of Arrival: Ambulatory kj2 02:20 Acuity: VANCE 3 kj2 Triage Assessment: 02:41 General: Appears in no apparent distress. General: Behavior is calm, cooperative. Pain: kj2 Complains of pain in headache Pain currently is 7 out of 10 on a pain scale. Neuro: Level of Consciousness is awake, alert, Oriented to person, place, time, situation. Cardiovascular: Patient's skin is warm and dry. Respiratory: Airway is patent Respiratory effort is even, unlabored. GI: No signs and/or symptoms were reported involving the gastrointestinal system. : No signs and/or symptoms were reported regarding the genitourinary system. 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 - Infectious Disease History:: Denies. - Social history:: Smoking status: Patient denies any tobacco usage or history of. - Family history:: not pertinent. Screenin:20 [facility] ED Fall Risk Assessment (Adult) History of falling in the last 3 months, kj2 including since admission No falls in past 3 months (0 pts) Confusion or Disorientation Intoxicated or Sedated Impaired Gait No (0 pts) Mobility Assist Device Used No (0 pt) Altered Elimination No (0 pt) Score/Fall Risk Level 0 - 2 = Low Risk Maintained a safe environment, Hourly rounding (assess needs \T\ fall precautionary measures) done. Abuse screen: Denies threats or abuse. Denies injuries from another. Nutritional screening: No deficits noted. Tuberculosis screening: No symptoms or risk factors identified. Assessment: 02:25 General: see triage assessment. kj2 03:22 Reassessment: Patient appears in no apparent distress at this time. Patient and/or kj2 family updated on plan of care and expected duration. Pain level reassessed. Patient is alert, oriented x 3, equal unlabored respirations, skin warm/dry/pink. 03:37 Reassessment: Patient appears in no apparent distress at this time. Patient and/or kj2 family updated on plan of care and expected duration. Pain level reassessed. Patient is alert, oriented x 3, equal unlabored respirations, skin warm/dry/pink. Vital Signs: 02:30 BP 129 / 81; Pulse 82; Resp 18; Temp 98.1; Pulse Ox 100% on R/A; kj2 02:39 Weight 88.9 kg; Height 5 ft. 6 in. ; kj2 03:22 BP 104 / 77; Pulse 78; Resp 18; Pulse Ox 99% on R/A; kj2 02:39 Body Mass Index 31.63 (88.90 kg, 167.64 cm) kj2 [place] Coma Score: 20:46 Eye Response: spontaneous(4). Motor Response: obeys commands(6). Verbal Response: sp4 oriented(5). Total: 15. ED Course: 01:42 Patient arrived in ED. gm2 01:53 Frederic Bishop MD is Attending Physician. sp4 02:20 Patient has correct armband on for positive identification. Bed in low position. Call kj2 light in reach. Adult w/ patient. Provided Education on: call light. 02:20 Arm band placed on Patient placed in an exam room, on a stretcher. kj2 02:32 Dianna Fisher, NICHOLE is Primary Nurse. kj2 02:39 Triage completed. kj2 03:37 No provider procedures requiring assistance completed. kj2 03:38 Patient did not have IV access during this emergency room visit. kj2 Administered Medications: 03:01 Drug: Tessalon Perle PO 200 mg PO once Route: PO; kj2 03:38 Follow up: Response: No adverse reaction kj2 03:01 Drug: diphenhydrAMINE PO 25 mg PO once Route: PO; kj2 03:38 Follow up: Response: No adverse reaction kj2 03:02 Drug: AZITHromycin PO 500 mg PO once Route: PO; kj2 03:39 Follow up: Response: Adverse reaction, Physician notified kj2 03:02 Drug: Promethazine PO 50 mg PO once Route: PO; kj2 03:39 Follow up: Response: No adverse reaction kj2 03:02 Drug: Ibuprofen PO 800 mg PO once Route: PO; kj2 03:38 Follow up: Response: No adverse reaction kj2 03:20 Not Given (Other Intervention Used): dextromethorphan-guaifenesinliquid 10 mg-100 mg/5 lg3 ml 20 ml PO once 03:22 Drug: Dextromethorphan-Guaifenesin PO Liquid 10 mg-100 mg/5 mL 10 ml PO once Route: PO; kj2 03:38 Follow up: Response: No adverse reaction kj2 Medication: 02:43 VIS not applicable for this client. kj2 Outcome: 03:29 Discharge ordered by . sp4 03:37 Discharged to home ambulatory, with family, kj2 03:37 Condition: stable 03:37 Discharge instructions given to patient, family, Instructed on discharge instructions, kj2 follow up and referral plans. medication usage, Demonstrated understanding of instructions, follow-up care, medications, Prescriptions given X 03:39 Patient left the ED. kj2 Signatures: Frederic Bishop MD MD sp4 Nancy Magdaleno gm2 Dianna Fisher RN RN kj2 Teena Copeland RN lg3
[2024-05-28 03:46] VITALS: BP 104/77; TEMP 98.1; O2SAT 99
== END 2024-05-28 03:39 | disposition home or self-care (01) ==
LOC: ER 01:36
DX: R05.9 Cough, unspecified (principal); J02.9 Acute pharyngitis, unspecified
CPT/HCPCS: 81025; 99283; Q0169